=== PATIENT | female | born 1940 | race Caucasian/White ===

== ENCOUNTER → 2016-10-04 | Outpatient (CLI) | payer MEDICARE, OTHER ==
[~2016-10-04] MED LIST: ASCORBIC ACID500 MG PO; ASPIRIN (CHILDR81 MG PO; B COMPLEX1 EACH PO; CALCIUM + VITA1 EACH PO; COLACE100 MG PO; FISH OIL 1,0001 EAC1 PO; FML10 ML OPHTH; MAGNESIUM400 M1 PO; NIASPAN500 MG PO; NUCYNTA50 MG PO; OMEPRAZOLE40 MG PO; POTASSIUM99 MG PO; RED YEAST RICE600 MG PO; STOOL SOFTENER1 EACH PO; TAB-A-VITE1 EACH PO; TYLENOL EXTRA500 MG PO; TYLENOL WITH C1 EACH PO; ULTRAM50 MG PO; VITAMIN D35000 UNI1 PO; XARELTO10 MG PO
== END | disposition disaster alternative care site (69) ==
LOC: GRAD 12:33
DX: M46.1 Sacroiliitis, not elsewhere classified (principal); M43.16 Spondylolisthesis, lumbar region; M48.06 Spinal stenosis, lumbar region; M54.5 Low back pain

== ENCOUNTER 2016-11-21 09:00 | Inpatient (IN) | payer MEDICARE, OTHER ==
[~2016-11-21] VITALS: Ht 160 cm; Wt 90.8 kg
--- NOTE | ~2016-11-21 | DS ---
PATIENT'S NAME: CECILIO NOLEN [facility] AGE: 76 Y [address] ROOM: [place] [address] LOCATION: G3N ADMIT DATE: 12/03/2016 Discharge Summary DISCHARGE DATE: 12/05/2016 FAMILY PHYSICIAN: Kel Campos MD ATTENDING PHYSICIAN: Kiara Wharton PRIMARY DIAGNOSIS: Degenerative joint disease of the right knee. SECONDARY DIAGNOSES: 1. Hyperlipidemia. 2. Iron deficiency anemia. 3. Hypertriglyceridemia. 4. History of deep venous thrombosis. PROCEDURE PERFORMED: Right total knee arthroplasty with computer navigation. HISTORY: The patient is a 76-year-old female, who presents with advanced right knee degenerative joint disease and associated severely compromised activities of daily living. The patient has decided to proceed with total knee arthroplasty after having been thoroughly counseled regarding the risks, benefits, limitations and alternatives. Please refer to the outpatient clinic notes and admission history and physical for this patient. HOSPITAL COURSE: The patient underwent a right total knee arthroplasty on 12/03/2016 without complications. Spinal anesthesia plus adductor canal block plus periarticular local anesthesia was utilized. The patient received 24 hours of perioperative prophylactic antibiotics and remained hemodynamically stable, neurovascularly intact throughout the entire hospital course. The postoperative prophylactic deep venous thrombosis prophylaxis consisted of Xarelto 10 mg, early mobilization and pneumatic compression devices. Daily physical therapy for gait training, transfer training range of motion and quadriceps isometric exercises were received. The patient progressed well in physical therapy. On the date of discharge, 12/05/2016, the incision at the knee was healing well and showed no signs of infection. DISPOSITION: Home. DISCHARGE ACTIVITY: The patient is to bear weight as tolerated with range of motion and quadriceps isometric exercises as instructed. The operative extremity is to be elevated at least 90% of the day. There is to be sterile 4x4 gauze dressings to the incision daily. Dr. Wharton is to be notified immediately if there is any increased pain, fevers, chills erythema or drainage. DISCHARGE MEDICATIONS: PATIENT'S NAME: CECILIO NOLEN [facility] AGE: 76 Y [address] ROOM: [place] [address] LOCATION: G3N ADMIT DATE: 12/03/2016 Discharge Summary DISCHARGE DATE: 12/05/2016 FAMILY PHYSICIAN: Kel Campos MD ATTENDING PHYSICIAN: Kiara Wharton 1. Xarelto 10 mg, take 1 tablet p.o. daily for DVT prevention. 2. Tylenol with codeine, take 1 tablet p.o. every 3 hours as needed for pain. FOLLOWUP: Followup appointment is to be with Dr. Wharton on 12/10/2016 for initial postoperative evaluation and x-rays at that time. STEPHANIE KULKARNI FOR KIARA WHARTON MD TLB/modl /[id number] d: 12/18/16 0229 t: 12/24/16 0951, DISCHARGE SUMMARY
--- NOTE | ~2016-11-21 | OR ---
PATIENT'S NAME: RONY NOLEN [facility] AGE: 76 Y [address] ROOM: [place] [address] LOCATION: [facility] ADMIT DATE: 12/03/2016 OR/Procedure Report DISCHARGE DATE: FAMILY PHYSICIAN: Kel Campos MD ATTENDING PHYSICIAN: KIARA WHARTON SURGEON: Kiara Wharton MD ADMINISTRATIVE JOB TITLES: Neeraj Styles PA-C and Carmine Salazar CST/FLUE LINING DIPPER. DATE OF PROCEDURE: 12/03/2016 PRE-OP DIAGNOSIS: Degenerative joint disease, right knee. POST-OP DIAGNOSIS: Degenerative joint disease, right knee. OPERATION: Right total knee arthroplasty with computer navigation. ANESTHESIA: Spinal anesthesia plus adductor canal block plus periarticular local anesthesia (ropivacaine with epinephrine and Toradol). ESTIMATED BLOOD LOSS: Less than 10 mL. DRAIN: None. SPECIMEN: None. COMPLICATIONS: None. IMPLANT SYSTEM: Cordell Triathlon: 1. Size 4 right posterior stabilized femoral component. 2. Size 3 [place] Modular tibial base plate. 3. An 11 mm posterior stabilized size 3 X3 tibial polyethylene insert. 4. A 29-mm oval X3 patellar component (triple pegged). INDICATIONS FOR SURGERY: Rony Nolen is a 76-year-old female who presents with advanced right knee degenerative joint disease and associated severely compromised activities of daily living. The patient has decided to proceed with knee replacement after having been thoroughly counseled regarding the associated risks, benefits, and limitations. We have specifically reviewed the risks and implications of infection, deep venous thrombosis, pulmonary embolism, mortality, neurovascular complications, blood transfusion (and associated potential for disease transmission or transfusion reaction), stiffness, instability, mechanical deterioration of the components (due to wear and or loosening), and the potential need for revision. We have also emphasized the importance of active involvement and compliance with post- operative physical therapy as a means of optimizing range of motion and PATIENT'S NAME: RONY NOLEN [facility] AGE: 76 Y [address] ROOM: [place] [address] LOCATION: [facility] ADMIT DATE: 12/03/2016 OR/Procedure Report DISCHARGE DATE: FAMILY PHYSICIAN: Kel Campos MD ATTENDING PHYSICIAN: KIARA WHARTON functional recovery. Informed consent has been granted. DESCRIPTION OF PROCEDURE: The patient was positioned supine after administration of anesthesia and prophylactic antibiotics. A well-padded pneumatic tourniquet was placed around the right proximal thigh, and the right lower extremity was prepped and draped with vigilant sterile technique. The patient's name as well as the intended operative side and procedure were confirmed with a verbal time-out involving myself, the circulating nurse, the scrub nurse, and the anesthesiologist. Examination under anesthesia demonstrated no active skin lesions or masses. There was a moderate effusion. There was no erythema. There was no abnormal warmth. Range of motion under anesthesia was from a 5-degree flexion contracture to 125 degrees of flexion. There was no ligamentous insufficiency. The right lower extremity was elevated and exsanguinated with an Esmarch wrap, and the pneumatic tourniquet was inflated to 300mmHg. The knee was approached through a longitudinal midline incision. A medial parapatellar arthrotomy was performed and the patella was everted. Examination of the joint space demonstrated a moderate amount of benign-appearing translucent synovial fluid. There was a large osteophyte at the intercondylar notch. There were no loose bodies. There was no synovitis. The cruciate ligaments were intact. There was a moderate-sized popliteal cyst, which I decompressed into the posteromedial aspect of the joint by dilating its point of communication. There was a large osteophyte at the inferior aspect of the patella. There was full-thickness loss of articular cartilage throughout the patella and the lateral 90% of the femoral trochlea with associated longitudinal striations of eburnated subchondral bone at the patella and trochlea yielding a corduroy appearance. There was a large osteophyte at the medial aspect of the femoral trochlea. There was a small osteophyte at the lateral margin of the femoral trochlea. There were mild grade 3 degenerative changes and extensive chondrocalcinosis at the medial femoral condyle. There were grade 2 degenerative changes at the medial tibial plateau. There were several small areas of partial thickness delamination of articular cartilage at the medial and lateral femoral condyles. There was a 1 cm diameter region of full- thickness articular cartilage loss at the posteromedial aspect of the lateral femoral condyle. There was full-thickness fissuring at the posterior aspect of the lateral tibial plateau with associated mild grade 3 degenerative changes and mild chondrocalcinosis. There was a small osteophyte at the lateral tibial plateau. There was moderate chondrocalcinosis at the medial and lateral menisci. There was mild inner perimeter tearing at the medial and lateral menisci. PATIENT'S NAME: RONY NOLEN [facility] AGE: 76 Y [address] ROOM: [address] [address] LOCATION: [facility] ADMIT DATE: 12/03/2016 OR/Procedure Report DISCHARGE DATE: FAMILY PHYSICIAN: Kel Campos MD ATTENDING PHYSICIAN: KIARA WHARTON Remnants of the menisci and cruciate ligaments were excised. The Sincerely computer navigation femoral tracker was pinned in place at the distal aspect of the femoral trochlea. Absence of motion between the femur and the tracking device was confirmed manually and visually. Femoral osseous landmarks were obtained in order to calibrate the computer navigation system. Landmarks included the center of rotation of the ipsilateral hip, the center-point of the distal femur, the femoral AP axis, 57 points on the medial femoral condyle articular surface, and 57 points on the lateral femoral condyle articular surface. The Sincerely computer navigation system was subsequently utilized to position the distal femoral resection block such that the distal femoral resection was performed perfectly perpendicular to the femoral mechanical axis. The distal femoral resection was performed with a [employer] Precision oscillating saw. The Sincerely computer navigation tibial tracker was pinned in place at the anterior aspect of the tibial plateau. Absence of motion between the tibia and the tracking device was confirmed manually and visually. Tibial osseous landmarks were obtained in order to calibrate the computer navigation system. Landmarks included the center-point of the tibial plateau, the AP tibial axis, 57 points on the medial tibial plateau articular surface, 57 points on the lateral tibial plateau articular surface, the medial malleolus, and the lateral malleolus. The Sincerely computer navigation system was subsequently utilized to position the proximal tibial resection block such that the proximal tibial resection was performed perfectly perpendicular to the tibial mechanical axis. The proximal tibial resection was performed with a [employer]ision oscillating saw. Perpendicularity of the tibial resection with respect to the tibial shaft axis was reconfirmed by inserting a spacer- block attached to an extramedullary guide tasha. External rotation of the anterior and posterior femoral resections was set parallel to the epicondylar axis and carefully adjusted in order to create a rectangular flexion gap. The box resection was performed with a reciprocating saw. Anterior and posterior chamfer resections were performed with the oscillating saw. Posterior condyle osteophytes were excised with an osteotome. All other osteophytes were excised with a rongeur. Resection of all remnants of the menisci was reconfirmed. Flexion and extension gaps were confirmed to be symmetric and well balanced with a spacer-block technique. The patella resection was performed with an oscillating saw such that the composite thickness of the reconstructed patella was equivalent to the thickness of the campo patella. Patella tracking was confirmed to be optimal, and there was no need for a lateral retinacular release was required. All trial components were removed and all prepared osseous surfaces were thoroughly irrigated with pulsatile saline lavage and dried prior to cementing PATIENT'S NAME: RONY NOLEN [facility] AGE: 76 Y [address] ROOM: [place] [address] LOCATION: [facility] ADMIT DATE: 12/03/2016 OR/Procedure Report DISCHARGE DATE: FAMILY PHYSICIAN: Kel Campos MD ATTENDING PHYSICIAN: KIARA WHARTON all three components in a single stage using [employer] Simplex cement containing pre-mixed tobramycin. All extruded excess cement was removed. The entire joint space was thoroughly inspected and thoroughly irrigated with bacteriostatic pulsatile saline lavage to assure that there was no residual debris of any sort. Final range of motion was from full extension (with no passive hyperextension) to 130 degrees of flexion. Patella tracking was reconfirmed to be optimal. There was excellent anteroposterior stability at 90 degrees of flexion. There was less than 1 mm of medial lift-off to valgus stress in full extension. There was less than 1 mm of lateral lift-off to varus stress in full extension. The arthrotomy was closed with multiple simple and [id number] interrupted #1 Vicryl. Subcutaneous tissues were thoroughly re-irrigated with bacteriostatic pulsatile saline lavage. Subcutaneous tissues were re- approximated with simple buried interrupted #0 Vicryl sutures. The skin was closed with simple buried interrupted 2-0 Vicryl sutures followed by surgical kiesha. The dressing consisted of Xeroform gauze, 4x4 gauze, ABD pads and two 6-inch Angel Wraps. There were no intra-operative complications. It should be noted that the physician's assistant housekeeping manager played an active, integral role throughout this entire operation. By providing expert retraction, they greatly facilitated and expedited safe and effective exposure of the distal femur, proximal tibia and patella for preparation and implantation of the components. They were also actively involved in the patient's positioning, prepping and draping, as well as wound closure. MD CHRISTIAN HARRISON/benja /[id number] d: 12/03/167 t: 12/12/16 1744, OPERATIVE SUMMARY
[2016-11-21] MEDS ORDERED: FISH OIL 1,0001 EAC1 PO (09:07)
[2016-11-21] MEDS ORDERED: TAB-A-VITE1 EACH PO (09:08)
[2016-11-21] MEDS ORDERED: ULTRAM50 MG PO (09:08)
[2016-11-21] MEDS ORDERED: STOOL SOFTENER1 EACH PO (09:08)
[2016-11-21] MEDS ORDERED: CALCIUM + VITA1 EACH PO (09:09)
[2016-11-21] MEDS ORDERED: OMEPRAZOLE40 MG PO (09:09)
[2016-11-21] MEDS ORDERED: B COMPLEX1 EACH PO (09:10)
[2016-11-21] MEDS ORDERED: VITAMIN D35000 UNI1 PO (09:10)
[2016-11-21] MEDS ORDERED: POTASSIUM99 MG PO (09:10)
[2016-11-21] MEDS ORDERED: FML10 ML OPHTH (09:11)
[2016-11-21] MEDS ORDERED: MAGNESIUM400 M1 PO (09:12)
[2016-11-21] MEDS ORDERED: RED YEAST RICE600 MG PO (09:13)
[2016-11-21] MEDS ORDERED: ASCORBIC ACID500 MG PO (09:13)
[2016-11-21] MEDS ORDERED: NIASPAN500 MG PO (09:14)
[2016-12-03] MEDS ORDERED: ASPIRIN (CHILDR81 MG PO (11:10)
[2016-12-04 06:07] LABS: HEMATOCRIT 37.3 % (33.0-46.0); HEMOGLOBIN 12.3 g/dL (10.0-15.0)
[2016-12-05] MEDS ORDERED: TYLENOL EXTRA500 MG PO (15:40)
[2016-12-05] MEDS ORDERED: XARELTO10 MG PO (15:43)
[2016-12-05] MEDS ORDERED: NUCYNTA50 MG PO (15:45)
[2016-12-05] MEDS ORDERED: COLACE100 MG PO (15:47)
[2016-12-05] MEDS ORDERED: TYLENOL WITH C1 EACH PO (15:49)
== END 2016-12-05 16:30 | disposition disaster alternative care site (69) | DRG 470 ==
LOC: G3N 12-03 10:16
PROVIDERS: ADMIT Orthopaedic Surgery
PROC: 0SRC0J9 Replacement of Right Knee Joint with Synthetic Substitute, Cemented, Open Approach (ICD-10-PCS; principal; 2016-12-03)
DX: M17.11 Unilateral primary osteoarthritis, right knee (principal); E55.9 Vitamin D deficiency, unspecified; K21.9 Gastro-esophageal reflux disease without esophagitis; Z96.652 Presence of left artificial knee joint; Z86.711 Personal history of pulmonary embolism; Z86.718 Personal history of other venous thrombosis and embolism; E66.9 Obesity, unspecified; E78.5 Hyperlipidemia, unspecified; Z68.35 Body mass index [BMI] 35.0-35.9, adult; E78.1 Pure hyperglyceridemia; D50.9 Iron deficiency anemia, unspecified
CPT/HCPCS: C1713; C1776; J0690; J1100; J1885; J2001; J2250; J2405; J2795; J7120

== ENCOUNTER → 2016-11-22 | Outpatient (CLI) | payer MEDICARE, OTHER | END | disposition disaster alternative care site (69) | LOC: GNJRC 10:55 | DX: Z01.812 Encounter for preprocedural laboratory examination (principal); M17.11 Unilateral primary osteoarthritis, right knee ==